=== PATIENT | female | born 1990 | race Asian ===

== ENCOUNTER 2017-03-28 10:47 | Day surgery (SDC) | payer OTHER ==
[~2017-03-28] VITALS: Ht 157.5 cm; Wt 45.9 kg
[2017-03-28] VITALS (9 sets, daily range): BP systolic 99–107; BP diastolic 46–59; PULSE 52–68; RESP 12–37; Ht 157.5 cm; Wt 45.9 kg
[2017-03-28] MEDS ORDERED: CEFAZOLIN 2 GM/50 ML (PMX) 50 ML IVPB ONE (11:30)
[2017-03-28] MEDS ORDERED: SOD CHLORIDE 0.9% 1,000 ML IV SCH (11:30)
[2017-03-28] MEDS ORDERED: ETHI1TAB7 PO (12:24)
[2017-03-28] MEDS ORDERED: PROPOFOL 20 ML ONE (12:28)
[2017-03-28] MEDS ORDERED: ROPIVACAINE 0.2% 20 ML VIAL ONE (12:29)
[2017-03-28] MEDS ORDERED: MIDAZOLAM 1 MG/ML 2 ML INJ ONE (12:29)
[2017-03-28] MEDS ORDERED: METOCLOPRAMIDE 10 MG INJ ONE (12:29)
[2017-03-28] MEDS ORDERED: BUPIVACAINE 0.25% (MPF) 30 ML INJ ONE ×2 (12:43→13:46)
[2017-03-28] MEDS ORDERED: POLYMYXIN/BACITRACIN 1L IRRIG ONE (13:44)
--- NOTE | 2017-03-28 14:58 | OPR ---
Date/Time of Note Date/Time of Note DATE: 03/28/17 TIME: 14:57 Operative Report Procedure Date: Mar 28, 2017 Preoperative Diagnosis incarcerated LIH Postoperative Diagnosis same Operation Performed open incarcerated LIH repair with small ultrapro hernia system mesh left ilioinguinal nerve block therapeutic injection of marcaine Surgeon: Kenn VILLARREAL G. SEONG Mar 28, 2017 14:58
[2017-03-28] MEDS ORDERED: METOCLOPRAMIDE 10 MG INJ IV PRN (15:00)
[2017-03-28] MEDS ORDERED: HYDROCODONE/APAP (5/325) TAB PO ONE (15:00)
[2017-03-28] MEDS ORDERED: HYDROmorphONE (0.2 MG/ML) 10ML SYG IV PRN ×3 (15:00)
[2017-03-28] MEDS ORDERED: OXYCODONE/ACETAMINOPHEN (5/325) TAB PO PRN ×2 (15:00)
[2017-03-28] MEDS ORDERED: ONDANSETRON 4 MG INJ IV PRN (15:00)
[2017-03-28] MEDS ORDERED: MEPERIDINE 25 MG INJ IV PRN (15:00)
[2017-03-28] MEDS ORDERED: DIPHENHYDRAMINE 50 MG INJ IV PRN (15:00)
--- NOTE | 2017-03-28 15:34 | OPR ---
DATE OF OPERATION: 03/28/2017 INDICATION: This is a 26-year-old female with a symptomatic incarcerated left inguinal hernia. She requests surgical repair. The risks, alternatives, benefits, and personnel were discussed with the patient. Patient expressed understanding and consented to the operation. PREOPERATIVE DIAGNOSIS: Incarcerated left inguinal hernia. POSTOPERATIVE DIAGNOSIS: Incarcerated left inguinal hernia. OPERATION: 1. Open incarcerated left inguinal hernia repair with small sized Ultrapro hernia system mesh. 2. Left ilioinguinal block. 3. Therapeutic injection of subcutaneous tissue [place] [address]. SURGEON: Renetta Woodruff MD SPECIMEN: None. COMPLICATIONS: None. ANESTHESIA: General. DESCRIPTION OF PROCEDURE: The patient was taken to the OR and prepped and draped in the usual steri le fashion. A surgical timeout was performed. IV antibiotics were given. A left inguinal oblique incision was made with a 10 blade. Dissection cautery was carried down to the external oblique fasc ia, which was opened with a 15 blade. This incision was extended medial inferiorly and lateral supe riorly with Metzenbaum scissors. The direct hernia was identified and reduced. The disk portion of the UltraPro hernia system mesh was used to bolster the hernia defect. This was secured in place w ith a running 0 Prolene from the pubic tubercle, along the shelving edge of the inguinal ligament, a nd superiorly to the internal oblique with interrupted 3-0 Vicryl. Onlay mesh was secured in simila r fashion with a running 0 Prolene from the pubic tubercle, along the shelving edge of the inguinal ligament, and superiorly to the external oblique and secured to the internal oblique with interrupte d 3-0 Vicryl. The external oblique fascia was closed with running 3-0 Vicryl. Gia's was closed with interrupted 3-0 Vicryl. The skin was closed with interrupted 3-0 Vicryl and running 4-0 Monocr yl. Local anesthesia was therapeutically injected. A left ilioinguinal block was performed by iden tifying a position 2 cm medial and 2 cm inferior to the ASIS. Using a fanning motion, a left ilioin guinal nerve block was performed. Dry dressings were applied. Dictated By: RENETTA WOODRUFF MD SB/GRANT Conf#: [id number] DID#: [id number]
== END 2017-03-28 16:45 | disposition home or self-care (01) ==
LOC: SDS 10:47
PROVIDERS: ATTEND Surgery
DX: K40.30 Unilateral inguinal hernia, with obstruction, without gangrene, not specified as recurrent (principal)
CPT/HCPCS: 49507; C1781; J1170; J2250; J2405; J2765; J2795; Z7512; Z7610